=== PATIENT | female | born 1955 | race Caucasian/White ===

== ENCOUNTER → 2016-10-15 | Outpatient (CLI) | payer OTHER ==
[2016-10-15 09:37] LABS: ALT 30 U/L (9-52); AST 29 U/L (14-36); Alkaline Phosphatase 74 U/L (38-126); Anion Gap 12 mmol/L; Blood Urea Nitrogen 14 mg/dL (7-17); Calcium 9.7 mg/dL (8.4-10.2); Carbon Dioxide 27 mmol/L (22-30); Chloride 105 mmol/L (98-107); Cholesterol 222 mg/dL (<200); Glucose 98 mg/dL (74-99); HDL Cholesterol 68 mg/dL (40-60); Non-African American GFR(MDRD) >60 (>60 ml/min/1.73 sqM); Potassium 4.6 mmol/L (3.5-5.1); Sodium 144 mmol/L (137-145); Total Bilirubin 0.5 mg/dL (0.2-1.3); Total Protein 7.9 g/dL (6.3-8.2); Triglycerides 124 mg/dL (<150)
--- NOTE | 2016-10-15 09:41 | BD ---
EXAMINATION TYPE: MG DEXA axial skeleton. DATE OF EXAM: 10/15/2016 9:14 AM COMPARISON: 07.07.2014 DEXA bone scan. CLINICAL HISTORY: M89.9 DISORDER OF BONE Height: 63 Weight: 148 FRAX RISK QUESTIONS: Alcohol (3 or more units per day): NO Family History (Parent hip fracture): NO Glucocorticoids (More than 3mos): NO (Ex: prednisone, prednisolone, methylprednisolone, dexamethasone, and hydrocortisone). History of Fracture in Adulthood: NO Secondary Osteoporosis: NO 1. Type 1 Diabetes: NO 2. Hyperthyroidism: NO 3. Menopause before 45: NO 4. Malnutrition: NO 5. Chronic liver disease: NO Rheumatoid Arthritis: NO Current Tobacco Use: NO RISK FACTORS HISTORY OF: Family History of Osteoporosis: YES HER MOTHER Smoke tobacco: NO Drink Alcohol: SOCIAL Active: YES Diet low in dairy products/other sources of calcium: NO Postmenopausal woman: YES...AT 52 YRS Adrenal Insufficiency: NO MEDICATIONS: Additional Medications: CALCIUM, Additional History: NONE TO NOTE EXAM MEASUREMENTS: Bone mineral densitometry was performed using the [employer] System. Bone mineral density as measured about the Lumbar spine is: ----- L1-L4(G/cm2): 1.066 T Score Values are as follows: ----- L1: -1.5 ----- L2: -1.0 ----- L3: -1.0 ----- L4: -0.6 ----- L1-L4: -1.0 Bone mineral density has: Decreased -2.6% since study of: 07.07.2014 Bone mineral density about the R hip (g/cm2): 0.782 Bone mineral density about the L hip (g/cm2): 0.759 T Score values are as follows: -----R Neck: -1.9 -----L Neck: -1.8 -----R Intertrochanter: -1.5 -----L Intertrochanter: -2.0 Bone mineral density has: Decreased -7.3% since study of: 07.07.2014 FRAX %'S: 9.8% CHANCE FOR A MAJOR OSTEOPOROTIC FX AND 1.2% FOR A HIP FX.....PROBABILITY OF FX IN 1 0 YRS TIME IMPRESSION: Osteopenia (T Score between -2.5 and -1 as noted by T score values overall in both hips. Bone density is decreased or diminished from prior study. There remains slightly increased risk of fracture and t he patient may be considered for treatment. Re-Screen 1-2 years. NOTE: T-SCORE=SD OF THE YOUNG ADULT MEAN.
--- NOTE | 2016-10-15 11:05 | MM ---
Reason for exam: screening (asymptomatic). Last mammogram was performed 2 years and 3 months ago. History: Patient is postmenopausal. Physical Findings: A clinical breast exam by your physician is recommended on an annual basis and results should be correlated with mammographic findings. MG Screening Mammo w CAD Bilateral CC and MLO view(s) were taken. Prior study comparison: July 07, 2014, bilateral MG screening mammo w CAD. January 15, 2012, bilateral digital screening mammo w/CAD. The breast tissue is heterogeneously dense. This may lower the sensitivity of mammography. Finding: There are typically benign vascular, round calcifications in both breasts. Asymmetric breast tissue in the left breast outer anterior aspect stable. ASSESSMENT: Benign, BI-RAD 2 RECOMMENDATION: Routine screening mammogram of both breasts in 1 year.
== END | disposition home or self-care (01) ==
LOC: RADMAMWWP 08:15
PROVIDERS: ATTEND Obstetrics & Gynecology
DX: Z12.31 Encounter for screening mammogram for malignant neoplasm of breast (principal); I48.0 Paroxysmal atrial fibrillation; E78.5 Hyperlipidemia, unspecified; M85.80 Other specified disorders of bone density and structure, unspecified site
CPT/HCPCS: 80061; 80053; 84443; 77080; 36415; G0202

== ENCOUNTER → 2018-02-11 | Outpatient (CLI) | payer OTHER ==
--- NOTE | 2018-02-12 11:20 | MM ---
Reason for exam: screening (asymptomatic). Last mammogram was performed 1 year and 4 months ago. History: Patient is postmenopausal. Physical Findings: A clinical breast exam by your physician is recommended on an annual basis and results should be correlated with mammographic findings. MG Screening Mammo w CAD Bilateral CC and MLO view(s) were taken. XCCL view(s) were taken of the left breast. Prior study comparison: October 15, 2016, bilateral MG screening mammo w CAD. July 07, 2014, bilateral MG screening mammo w CAD. The breast tissue is heterogeneously dense. This may lower the sensitivity of mammography. There is no discrete abnormality. No significant changes when compared with prior studies. ASSESSMENT: Negative, BI-RAD 1 RECOMMENDATION: Routine screening mammogram of both breasts in 1 year.
== END | disposition home or self-care (01) ==
LOC: RADMAMWWP 10:49
PROVIDERS: ATTEND Obstetrics & Gynecology
DX: Z12.31 Encounter for screening mammogram for malignant neoplasm of breast (principal)
CPT/HCPCS: 77067

== ENCOUNTER → 2019-06-26 | Outpatient (CLI) | payer OTHER ==
[2019-06-26 09:28] LABS: ALT 21 U/L (4-34); AST 30 U/L (14-36); African American GFR (CKD) >90 (>60 ml/min/1.73 sqM); Albumin 4.7 g/dL (3.5-5.0); Alkaline Phosphatase 65 U/L (38-126); Anion Gap 7 mmol/L; Blood Urea Nitrogen 18 mg/dL (7-17); Calcium 9.8 mg/dL (8.4-10.2); Carbon Dioxide 29 mmol/L (22-30); Chloride 104 mmol/L (98-107); Cholesterol 236 mg/dL (<200); Glucose 92 mg/dL (74-99); HDL Cholesterol 70 mg/dL (40-60); LDL Cholesterol,Calculated 147 mg/dL (0-99); Non-African American GFR(CKD) >90 (>60 ml/min/1.73 sqM); Potassium 4.3 mmol/L (3.5-5.1); Sodium 140 mmol/L (137-145); Total Bilirubin 0.6 mg/dL (0.2-1.3); Total Protein 7.9 g/dL (6.3-8.2); Triglycerides 94 mg/dL (<150)
[2019-06-26 09:44] LABS: T4, Free (Free Thyroxine) 0.76 ng/dL (0.78-2.19)
--- NOTE | 2019-06-26 13:33 | MM ---
Reason for exam: screening (asymptomatic). Last mammogram was performed 1 year and 4 months ago. History: Patient is postmenopausal and history of other cancer. Physical Findings: A clinical breast exam by your physician is recommended on an annual basis and results should be correlated with mammographic findings. MG Screening Mammo w CAD Bilateral CC and MLO view(s) were taken. Prior study comparison: February 11, 2018, bilateral MG screening mammo w CAD. October 15, 2016, bilateral MG screening mammo w CAD. The breast tissue is heterogeneously dense. This may lower the sensitivity of mammography. Benign appearing bilateral calcifications. No suspicious abnormality. No significant changes when compared with prior studies. ASSESSMENT: Benign, BI-RAD 2 RECOMMENDATION: Routine screening mammogram of both breasts in 1 year.
--- NOTE | 2019-06-26 18:26 | BD ---
EXAMINATION TYPE: Axial Bone Density DATE OF EXAM: 06/26/2019 COMPARISON: 10.15.2016 CLINICAL HISTORY: 64 YR OLD FEMALE....ICD-10 CODE: M89.9 DISORDER OF BONE , Z13.820 OSTEOPOROSIS Height: 63.2 Weight: 133 FRAX RISK QUESTIONS: NOTHING TO NOTE HERE RISK FACTORS HISTORY OF: Family History of Osteoporosis: YES, HER MOTHER, NO FX Active: YES Diet low in dairy products/other sources of calcium: YES, A BIT Postmenopausal woman: YES AT 52 YRS OLD Hyperparathyroidism: NO Adrenal Insufficiency: NO MEDICATIONS: Additional Medications: REFLUX MEDS, CALCIUM WITH D Additional History: REFLUX PERIODICALLY EXAM MEASUREMENTS: Bone mineral densitometry was performed using the [employer] System. Bone mineral density as measured about the Lumbar spine is: ----- L1-L4(G/cm2): 0.998 T Score Values are as follows: ----- L1: -1.9 ----- L2: -1.6 ----- L3: -1.0 ----- L4: -1.7 ----- L1-L4: -1.5 Bone mineral density has: Decreased -6.5% since study of: 10.15.2016 Bone mineral density about the R hip (g/cm2): 0.721 Bone mineral density about the L hip (g/cm2): 0.719 T Score values are as follows: -----R Neck: -2.4 -----L Neck: -2.2 -----R Total: -2.3 -----L Total: -2.3 Bone mineral density has: Decreased -6.6% since study of: 10.15.2016 FRAX%s: THERE IS A 12.1% CHANCE FOR A MAJOR OSTEOPOROTIC FX AND A 2.4% FOR HIP....PROBABILITY FOR F X IN 10 YRS TIME IMPRESSION: Osteopenia (T Score between -2.5 and -1). There is slightly increased risk of fracture and the patient may be considered for treatment. Re-Screen 2-5 years. NOTE: T-SCORE=SD OF THE YOUNG ADULT MEAN.
== END | disposition home or self-care (01) ==
LOC: RADMAMWWP 08:20
PROVIDERS: ATTEND Obstetrics & Gynecology
DX: Z12.31 Encounter for screening mammogram for malignant neoplasm of breast (principal); M85.80 Other specified disorders of bone density and structure, unspecified site; Z13.820 Encounter for screening for osteoporosis; Z13.220 Encounter for screening for lipoid disorders; Z13.29 Encounter for screening for other suspected endocrine disorder; Z13.228 Encounter for screening for other metabolic disorders
CPT/HCPCS: 36415; 77067; 77080; 80053; 80061; 84439; 84443

== ENCOUNTER → 2021-01-11 | Outpatient (CLI) | payer MEDICARE ==
--- NOTE | 2021-01-12 09:59 | MM ---
Reason for exam: screening (asymptomatic). Last mammogram was performed 1 year and 7 months ago. History: Patient is postmenopausal and history of other cancer. Physical Findings: A clinical breast exam by your physician is recommended on an annual basis and results should be correlated with mammographic findings. MG 3D Screening Mammo W/Cad Bilateral CC and MLO view(s) were taken. Prior study comparison: June 26, 2019, bilateral MG screening mammo w CAD. February 11, 2018, bilateral MG screening mammo w CAD. The breast tissue is heterogeneously dense. This may lower the sensitivity of mammography. There is no discrete abnormality. No significant changes when compared with prior studies. ASSESSMENT: Negative, BI-RAD 1 RECOMMENDATION: Routine screening mammogram of both breasts in 1 year.
== END | disposition home or self-care (01) ==
LOC: RADMAMWWP 13:42
PROVIDERS: ATTEND Obstetrics & Gynecology
DX: Z12.31 Encounter for screening mammogram for malignant neoplasm of breast (principal); Z78.0 Asymptomatic menopausal state
CPT/HCPCS: 77063; 77067

== ENCOUNTER → 2021-12-29 | Outpatient (CLI) | payer MEDICARE ==
[2021-12-29 22:17] LABS: HCT 40.3 % (37.2-46.3); HGB 12.7 g/dL (12.0-15.0); MCH 28.9 pg (27.0-32.0); MCHC 31.5 g/dL (32.0-37.0); MCV 91.6 fL (80.0-97.0); Mean Platelet Volume 10.9 fL (9.5-12.2); NRBC Per 100 WBC 0 /100 WBCS (0.0-0.0); Platelet Count 278 X 10*3/uL (140-440); RDW 12.8 % (11.5-14.5); WBC 5.88 X 10*3/uL (4.50-10.00)
[2021-12-30 01:25] LABS: Anion Gap 16.6 mmol/L (10.00-18.00); Blood Urea Nitrogen 16.2 mg/dL (9.0-27.0); Carbon Dioxide 21.4 mmol/L (20.0-27.5); Non-African American GFR(CKD) 58.7 (60.0-200.0); Potassium 4.7 mmol/L (3.5-5.5)
== END ==
LOC: LABPAT 14:47
PROVIDERS: ATTEND Internal Medicine Clinical Cardiac Electrophysiology
DX: I34.0 Nonrheumatic mitral (valve) insufficiency (principal); I48.0 Paroxysmal atrial fibrillation
CPT/HCPCS: 80051; 82565; 84520; 85027

== ENCOUNTER 2022-01-08 08:49 | Day surgery (SDC) | payer BC, MEDICARE ==
[2022-01-04 11:59] VITALS: BMI 23.3
[~2022-01-08 08:49] MED LIST: DEXAMETHASONE SOD PHOSPHATE 4 MG/ML 1 ML VIAL IV ONE; LACTATED RINGERS 1,000 ML IV SCH; LIDOCAINE 1% (10MG/ML) FOR IV START INTRADERMA PRN; ONDANSETRON 4 MG/2 ML VIAL IVP ONE; ONDANSETRON 4 MG/2 ML VIAL IVP PRN; SODIUM CHLORIDE 0.9% 1,000 ML IV SCH; fentaNYL (PF) 50 MCG/ML 2 ML AMP IV PRN
--- NOTE | 2022-01-08 11:35 | P.HPCAR ---
History of Present Illness This is Dr. Jenkins dictating an H/P on this patient The patient was interviewed and examined IMPRESSION / ASSESSMENT: Paroxysmal atrial fibrillation with RVR, symptomatic Moderate MR Some episodes associated with presyncope PLAN: Discussed with patient and her We will proceed with cryoablation of the pulmonary veins as previously planned Continue anticoagulation with ELIQUIS HPI Patient presents with frequent episodes of atrial fibrillation She has been on ELIQUIS 5 mg twice daily She has episodes of RVR and occasionally has presyncope associated with these episodes Denies any undue shortness of breath orthopnea PND chest discomfort No syncope in the last one to 2 weeks No fever chills cough expectoration ROS: No fever chills or rigors, no cough, phlegm or expectoration, no nausea, vomiting or diarrhea, no hematuria, dysuria, no musculoskeletal complaints, no strokes or seizures, no skin lesions. EXAMINATION: Afebrile 98.1F pulse rate in the 60s and regular blood pressure 153/72 mmHg pulse ox normal normal S1 normal S2, soft systolic murmur over the apex Clear lungs no rhonchi no crackles No JVD no hepatojugular reflux No lower extremity edema Soft nontender abdomen REVIEW OF LABS, ECG & MEDICAL DATA PCR for coronavirus nonreactive Physical Exam Vitals: Vital Signs Temp Pulse Resp BP Pulse Ox 01/08/22 09:54 98.1 F 63 16 153/72 98 Intake and Output 01/07/22 01/08/22 01/08/22 22:59 06:59 14:59 Other: Weight 62.4 kg Past Medical History Past Medical History: Atrial Fibrillation History of Any Multi-Drug Resistant Organisms: None Reported Past Surgical History: Section, Heart Catheterization, Orthopedic Surgery, Uterine Ablation Additional Past Surgical History / Comment(s): COLONOSCOPY. C-SEC X 3. BILAT CTR Past Anesthesia/Blood Transfusion Reactions: No Reported Reaction Smoking Status: Never smoker - Past Family History Father Family Medical History: Cancer Physical Examination Vital Signs Temp Pulse Resp BP Pulse Ox 01/08/22 09:54 98.1 F 63 16 153/72 98 Intake and Output 01/07/22 01/08/22 01/08/22 22:59 06:59 14:59 Other: Weight 62.4 kg Results Current Medications Generic Name Dose Route Start Last Admin Trade Name Freq PRN Reason Stop Dose Admin Fentanyl Citrate 50 mcg 01/08/22 06:01 Fentanyl (Pf) 50 Mcg/Ml 2 Ml Amp IV 01/08/22 23:00 Q3M PRN Phase I - Pain Control Sodium Chloride 1,000 mls @ 50 mls/hr 01/08/22 06:01 01/08/22 09:50 Saline 0.9% IV 02/07/22 06:02 0 mls .Q20H TREY Administration Lactated Ringer's 1,000 mls @ 20 mls/hr 01/08/22 06:01 Lactated Ringers IV 02/07/22 06:02 .Q24H TREY Lidocaine HCl 0.1 ml 01/08/22 06:01 Lidocaine 1% (10mg/Ml) For Iv Start INTRADERMA 02/07/22 06:02 PER PROTOCOL PRN IV Start Ondansetron HCl 4 mg 01/08/22 06:01 Ondansetron 4 Mg/2 Ml Vial IVP 01/08/22 23:00 ONCE PRN Phase 1 or 2 - Nausea/Vomiting Intake and Output 01/07/22 01/08/22 01/08/22 22:59 06:59 14:59 Other: Weight 62.4 kg Patient Weight 01/09/22 06:59 Weight 62.4 kg
[2022-01-08] MEDS ORDERED: PROPOFOL 10 MG/ML 20 ML VIAL IV ONE (11:47)
[2022-01-08] MEDS ORDERED: DEXAMETHASONE SOD PHOSPHATE 4 MG/ML 1 ML VIAL ONE (11:47)
[2022-01-08] MEDS ORDERED: MIDAZOLAM 2 MG/2 ML VIAL ONE (11:47)
[2022-01-08] MEDS ORDERED: ONDANSETRON 4 MG/2 ML VIAL ONE (11:47)
[2022-01-08] MEDS ORDERED: fentaNYL (PF) 50 MCG/ML 2 ML AMP ONE (11:47)
[2022-01-08] MEDS ORDERED: ePHEDrine 50 MG/ML 1 ML VIAL ONE (11:47)
[2022-01-08] MEDS ORDERED: SUCCINYLCHOLINE CHLORIDE 100 MG/5 ML SYR IV ONE (11:47)
[2022-01-08] MEDS ORDERED: ISOPROTERENOL 250 MCG/1.25 ML SYR IV ONE (11:47)
[2022-01-08] MEDS ORDERED: ROCURONIUM 10 MG/ML (5 ML VIAL) IV ONE (11:47)
[2022-01-08] MEDS ORDERED: HEPARIN SODIUM,PORCINE 5,000 UNIT/ML 1 ML VIAL ONE (11:47)
[2022-01-08] MEDS ORDERED: LIDOCAINE 2% INJ 20 MG/ML (2 ML VIAL) ONE (11:47)
[2022-01-08] MEDS ORDERED: KETAMINE 10 MG/ML 20 ML VIAL ONE (11:47)
[2022-01-08] MEDS ORDERED: LIDOCAINE 1% INJ 10MG/ML (5 ML VIAL-PF) SQ ONE (12:47)
[2022-01-08] MEDS ORDERED: HEPARIN SOD,PORK IN 0.45% NACL 25,000 UNIT in 0.45% NACL 1 250ML.BAG IV ONE (12:47)
[2022-01-08] MEDS ORDERED: IOPAMIDOL-370 100ML BTL INJ ONE (14:26)
[2022-01-08] MEDS ORDERED: LABETALOL 5 MG/ML VIAL MDV IVP ONE ×2 (15:01→15:29)
--- NOTE | 2022-01-08 15:20 | P.EPPROC ---
- EP Procedure Note Electrophysiology Procedure Note: PROCEDURE A. fib ablation/PVI DIAGNOSIS Paroxysmal Atrial fibrillation, symptomatic, refractory to therapy, symptomatic with episodes of presyncope RESULT No left atrial appendage mass seen on intracardiac echo Successful A. fib ablation/pulmonary vein isolation of all veins using cryo-abl ation Complete entrance block in all 4 veins confirmed Transient phrenic nerve paresis with RSPV isolation Esophageal deflection YES, left-sided esophagus PROCEDURE DETAILS Patient was brought to the EP lab in a fasting state after obtaining written informed consent. Procedure performed under general anesthesia Esophagus was intubated. Esophageal temperature monitoring with circa catheter. Esophageal deflection with an endoscope to avoid hypothermia of the esophagus. After initial muscle relaxant use, muscle relaxants were not given thereafter in order to assess phrenic nerve during procedure. Patient prepped and draped as per protocol Cryo ablation-set up with standard preparation of the cryoablation tools done. Femoral Venous access obtained on the right and left groins and sheaths placed Diagnostic catheters for the high right atrium, phrenic nerve stimulation and pacing, His bundle, coronary sinus placed Intracardiac echo catheter placed. Long sheath placed in the right atrium Left and right transseptal catheterization performed under intracardiac echo guidance. Intravenous heparin with aCT above 300 Later, catheter positioning and balloon positioning in the left atrium and pulmonary veins, under intracardiac echo guidance Diagnostic EP study with coronary sinus pacing and recording Baseline measurements: Sinus cycle length 1031, PA interval 138, QRS 97 and QT 474 AH 73 and HV 30 Sinus node recovery times at 600, 500 and 400 ms were 1166, 1258 and 1226 AV node Wenckebach block 340 ms High-dose Isuprel infused Burst stimulation from the high right atrium at the end of the procedure No inducible atrial fibrillation Transseptal catheterization performed RA pressure LA pressure Transseptal catheterization performed with standard sheath. The cryoablation sheath was then placed with an over the wire exchange without any acute complications. The cryoablation balloon was placed in the office of each pulmonary vein and all 4 pulmonary veins were isolated. IV dye was injected to confirm occlusion. Goal: achieve complete occlusion of the pulmonary vein, achieve -30 degrees C at 30 seconds and achieve -40 degrees C at 60 seconds and a time to effect of less than 60 seconds. If not, the balloon was repositioned to obtain this result After completion of Cryoblation with durations from 180-240 seconds, entrance block was confirmed with the Attain circular catheter in a roving fashion around the antrum of the pulmonary veins Phrenic nerve pacing was performed from the SVC, right innominate vein area and diaphragm voltage was monitored. Diaphragmatic contractions were also monitored manually for strength of contraction. At the end of the procedure the Achieve catheter was once again used to check for entrance block Phrenic nerve paresis noted within 60 seconds of this previously ablation RSV was isolated and less than 45 seconds Thereafter, once phrenic nerve the recovery began and completion of ablation for the veins, the cryoablation was applied outside RSP via the roof Another lesion was applied in the kendal The RSP was isolated ostially Signals were still noted in the antrum but not within the ostium The phrenic nerve had been mapped within the RSP also, ostial and antral lesions were delivered once phrenic nerve recovered This per the procedure took longer than usual Phrenic nerve stimulation was performed to confirm diaphragmatic stimulation the end of the procedure Cine fluoroscopy was performed at the very end of the procedure to confirm movement of both diaphragms with inspiration and expiration At the end of the procedure the patient was extubated Venous sheaths were removed and hemostasis assured with a closure device PROCEDURES PERFORMED Diagnostic EP study CS pacing and recording Left and right transseptal catheterization Catheter the mapping of the tachycardia Intracardiac echocardiography Pulmonary vein isolation with transseptal and comprehensive EPS, [id number] Drug infusion, +[id number] Extended procedure duration
[2022-01-08] MEDS ORDERED: ACETAMINOPHEN TAB 325 MG TAB PO PRN (16:48)
[2022-01-08] MEDS ORDERED: ACETAMINOPHEN IV (For NPO) 1,000 MG in EMPTY BAG 1 BAG IVPB ONE (18:00)
[2022-01-08] MEDS: APIXABAN 5 MG TAB PO SCH (20:16)
[2022-01-09] MEDS: APIXABAN 5 MG TAB PO SCH (08:02)
[2022-01-09 08:04] VITALS: BP 145/66; PULSE 67; RESP 16; TEMP 97.7
--- NOTE | 2022-01-09 11:17 | P.DS ---
Providers Attending physician: Werner Jenkins Primary care physician: Stated None Hospital Course: Patient is doing well from a cardiac standpoint. No pleuritic chest discomfort. Just a vague sensation of pressure all across the chest No rub no gallop No dizziness no lightheadedness she looks comfortable On examination 127/60 pulse rate in the 70s afebrile Breath sounds are equal bilaterally no rhonchi no crackles Normal heart sounds normal S1 normal S2 Groins of healed well no hematoma Impression Paroxysmal atrial fibrillation, refractory to therapy and symptomatic with presyncope Status post cryoablation of all 4 veins Right superior pulmonary vein cryoablation resulted in very transient 5 no paresis Cryoablation was performed around the antra of the right pulmonary vein without occluding it to avoid friend provisionally The vein was isolated All veins were isolated Following that Isuprel was started and with burst stimulation no further atrial fibrillation could be induced Plan Continue ELIQUIS for 3 months Follow-up in the office in 2 weeks Plan - Discharge Summary Discharge Rx Participant: Yes New Discharge Prescriptions: No Action Magnesium Oxide [Mag-Ox] 400 mg PO DAILY Calcium Citrate/Vitamin D3 [Citracal + D Maximum Caplet] 1 each PO DAILY Apixaban [Eliquis] 5 mg PO BID Apple Cider Vinegar Gummies 2 each PO DAILY Multivitamins, Thera [Multivitamin (formulary)] 1 tab PO DAILY Discharge Medication List Apixaban [Eliquis] 5 mg PO BID 01/04/22 [History] Apple Cider Vinegar Gummies 2 each PO DAILY 01/04/22 [History] Calcium Citrate/Vitamin D3 [Citracal + D Maximum Caplet] 1 each PO DAILY 01/04/22 [History] Magnesium Oxide [Mag-Ox] 400 mg PO DAILY 01/04/22 [History] Multivitamins, Thera [Multivitamin (formulary)] 1 tab PO DAILY 01/04/22 [History] Follow up Appointment(s)/Referral(s): Werner Jenkins MD [STAFF PHYSICIAN] - 01/22/22 11:30 am Activity/Diet/Wound Care/Special Instructions: Post EP study - Ablation instructions 1. Keep access sites dry for 2 days. 2. No heavy lifting or straining for 2 days. 3. Avoid bending the hips repeatedly for 2 days. 4. You may go up and down stairs slowly Call if the following is noted 1. Bleeding, increasing swelling or pain at the access sites. 2. Increasing chest discomfort, especially upon taking a deep breath. 3. Increasing shortness of breath, at rest or with exertion. 4. Undue cough / phlegm 5. Difficulty or pain while swallowing. 6. Pain or change in color in the extremities. 7. Fever, chills, rigors. 8. Increasing headache or neurologic symptoms. 9. Dizziness, fainting, palpitations Continue current medications
== END 2022-01-09 11:32 ==
LOC: CATHEP 08:49 → 6NMEDSUR 14:32 → CATHEP 01-09 11:32
PROVIDERS: ATTEND Internal Medicine Clinical Cardiac Electrophysiology
DX: I48.0 Paroxysmal atrial fibrillation (principal); R55 Syncope and collapse; I34.0 Nonrheumatic mitral (valve) insufficiency; Z20.822 Contact with and (suspected) exposure to COVID-19; Z79.01 Long term (current) use of anticoagulants; Z79.82 Long term (current) use of aspirin; Z79.899 Other long term (current) drug therapy; Z88.1 Allergy status to other antibiotic agents; Z88.0 Allergy status to penicillin; Z88.2 Allergy status to sulfonamides
CPT/HCPCS: 93623; 93656; 87635; C1894 ×2; C1769 ×4; C1760; C1730 ×2; C1759; C1893; C1733; C1766; J2250; J1644 ×2; J1100; J0690; J2405; J2001 ×2; J3010; J0330; J2704; Q9967

== ENCOUNTER → 2023-01-31 | Outpatient (CLI) | payer MEDICARE ==
--- NOTE | 2023-01-31 10:41 | MM ---
Reason for Exam: Screening (asymptomatic). Last mammogram was performed 2 year(s) and 1 month(s) ago. Patient History: Menarche at age 11. First Full-Term at age 23. Postmenopausal. Other cancer. Risk Values: Nguyen 5 year model risk: 1.7%. NCI Lifetime model risk: 5.5%. Prior Study Comparison: 02/11/2018 Bilateral Screening Mammogram, [facility]. 06/26/2019 Bilateral Screening Mammogram, [facility]. 01/11/2021 Bilateral Screening Mammogram, [facility]. Tissue Density: The breast tissue is heterogeneously dense. This may lower the sensitivity of mammography. Findings: Analyzed By CAD. There is no suspicious group of microcalcifications or new suspicious mass in either breast. Benign calcification within the both breasts. Loop recorder within the left breast. Overall Assessment: Benign, BI-RAD 2 Management: Screening Mammogram of both breasts in 1 year. A clinical breast exam by your physician is recommended on an annual basis and results should be correlated with mammographic findings. Note on Nguyen scores and lifetime risk: 1. A Nguyen score greater than 3% is considered moderate risk. If this is the case, consider specialist referral to assess eligibility for a risk reducing agent. If overall lifetime risk for the development of breast cancer is 20% or higher, the patient may qualify for future screening with alternating mammogram and breast MRI. Electronically signed and approved by: Oli Caballero D.O.
--- NOTE | 2023-01-31 12:18 | BD ---
EXAMINATION TYPE: Axial Bone Density DATE OF EXAM: 01/31/2023 CLINICAL HISTORY: 68 years old Female. ICD-10 CODE: M85.88DISRD OF BONE DENSITY AND STRUCTURE, Height: 62.3 Weight: 133 FRAX RISK QUESTIONS: Family History (Parent hip fracture): no fx RISK FACTORS HISTORY OF: Family History of Osteoporosis: yes, mom but no fx Postmenopausal woman: 52 Hyperparathyroidism: no Adrenal Insufficiency: no MEDICATIONS: Prednisone or other steroids: yes, for illnesses on and off Additional Medications: reflux meds, calcium with vit d Additional History: reflux, EXAM MEASUREMENTS: Bone mineral densitometry was performed using the [employer] System. Bone mineral density as measured about the Lumbar spine is: ----- L1-L4(G/cm2): 1.014 T Score Values are as follows: ----- L1: -2.2 ----- L2: -1.7 ----- L3: -1.2 ----- L4: -0.8 ----- L1-L4: -1.4 Z Score Values are as follows: ----- L1: -0.4 ----- L2: 0.1 ----- L3: 0.6 ----- L4: 1.0 ----- L1-L4: 0.4 Bone mineral density has: Increased 1.6% since study of: 06.26.2019 Bone mineral density about the R hip (g/cm2): 0.691 Bone mineral density about the L hip (g/cm2): 0.705 T Score values are as follows: -----R Neck: -2.5 -----L Neck: -2.1 -----R Total: -2.5 -----L Total: -2.4 Z Score values are as follows: -----R Neck: -0.8 -----L Neck: -0.5 -----R Total: -1.1 -----L Total: -0.9 Bone mineral density has: Decreased -3.1% since study of: 06.26.2019 FRAX%s: The graph provided illustrates a 14.1% chance for a major osteoporotic fx and a 3.4% chance f or the hips probability for fx in 10 years time. IMPRESSION: Osteopenia (T Score between -2.5 and -1). There is slightly increased risk of fracture and the patient may be considered for treatment. Re-Screen 2-5 years. NOTE: T-SCORE=SD OF THE YOUNG ADULT MEAN.
== END | disposition home or self-care (01) ==
LOC: RADMAMWWP 10:16
PROVIDERS: ATTEND Obstetrics & Gynecology
DX: Z12.31 Encounter for screening mammogram for malignant neoplasm of breast (principal); M81.0 Age-related osteoporosis without current pathological fracture; M85.89 Other specified disorders of bone density and structure, multiple sites; Z78.0 Asymptomatic menopausal state
CPT/HCPCS: 77067; 77080

== ENCOUNTER → 2025-01-13 | Outpatient (CLI) | payer MEDICARE ==
[2025-01-13 16:01] LABS: Basophils # (A) 0.05 X 10*3/uL (0.00-0.10); Basophils % (A) 1.1 %; Eosinophils # (A) 0.09 X 10*3/uL (0.04-0.35); Eosinophils % (A) 2.0 %; HCT 45.0 % (37.2-46.3); HGB 14.4 g/dL (12.0-15.0); Immature Grans, Automated 0 %; Lymphocytes # (A) 1.17 X 10*3/uL (0.90-5.00); Lymphocytes % (A) 26.0 %; MCH 29.6 pg (27.0-32.0); MCHC 32.0 g/dL (32.0-37.0); MCV 92.4 FL (80.0-97.0); Monocytes # (A) 0.37 X 10*3/uL (0.20-1.00); Monocytes % (A) 8.2 %; NRBC Per 100 WBC 0 X 10*3/uL (0.00-0.01); Neutrophils # (A) 2.82 X 10*3/uL (1.80-7.70); Neutrophils % (A) 62.7 %; Platelet Count 305 X 10*3/uL (140-440); RBC 4.87 X 10*6/uL (4.10-5.20); RDW 12.8 % (11.5-14.5); WBC 4.50 X 10*3/uL (4.50-10.00)
[2025-01-13 18:45] LABS: Cholesterol 230.00 mg/dL (0.00-200.00); HDL Cholesterol 75.90 mg/dL (40.00-60.00); LDL Cholesterol,Calculated 132.1 mg/dL (0.0-131.0); Magnesium 2.4 mg/dL (1.5-2.4); Triglycerides 110.00 mg/dL (0.00-149.00); VLDL Calculation 22.00 mg/dL (5.00-40.00)
[2025-01-13 18:56] LABS: ALT 18 U/L (8-44); Albumin 4.6 g/dL (3.8-4.9); Albumin/Globulin Ratio 1.64 Ratio (1.60-3.17); Alkaline Phosphatase 71 U/L (41-126); Anion Gap 12.60 mmol/L (4.00-12.00); BUN/Creat Ratio 13.62 Ratio (12.00-20.00); Blood Urea Nitrogen 10.9 mg/dL (9.0-27.0); Calcium 9.7 mg/dL (8.7-10.3); Carbon Dioxide 24.4 mmol/L (21.6-31.8); Chloride 105 mmol/L (96-109); Globulin 2.8 g/dL (1.6-3.3); Glucose 106 mg/dL (70-110); Sodium 142 mmol/L (135-145); Total Protein 7.4 g/dL (6.2-8.2)
== END | disposition home or self-care (01) ==
LOC: LABWHC1 08:29
PROVIDERS: ATTEND Nurse Practitioner Adult Health
DX: I48.0 Paroxysmal atrial fibrillation (principal); E78.5 Hyperlipidemia, unspecified
CPT/HCPCS: 36415; 80053; 80061; 83735; 84443; 85025